=== PATIENT | male | born 1960 | race American Indian/Alaskan Native ===

== ENCOUNTER 2018-07-22 07:27 | Day surgery (SDC) | payer OTHER ==
[2018-07-22] MEDS ORDERED: NACL 0.9% 500 ML 500 ML IV SCH (08:00)
[2018-07-22 08:06] LABS: Basophils # (Auto) 0.1 K/mm3 (0.0-0.1); Eosinophils # (Auto) 0.2 K/mm3 (0.0-0.4); Eosinophils % (Auto) 3.9 % (0.0-4.3); Hematocrit 48.9 % (35.5-45.6); Lymphocytes # (Auto) 2.4 K/mm3 (1.2-5.4); Lymphocytes % (Auto) 38.3 % (13.4-35.0); Mean Corpuscular HGB Conc 35 % (32-34); Mean Corpuscular Volume 88 fl (84-94); Monocytes # (Auto) 0.8 K/mm3 (0.0-0.8); Monocytes % (Auto) 12.6 % (0.0-7.3); Platelet Count 156 K/mm3 (140-440); Red Blood Count 5.55 M/mm3 (3.65-5.03); Red Cell Distribution Width 13.9 % (13.2-15.2)
[2018-07-22 08:17] LABS: INR 0.9 (0.87-1.13)
[2018-07-22 08:22] LABS: BUN/Creatinine Ratio 13; Blood Urea Nitrogen 15 mg/dL (9-20); Hemolysis Index 57
[2018-07-22] MEDS ORDERED: HEPARIN 10,000 UNITS/10 ML ONE (09:13)
[2018-07-22] MEDS ORDERED: HEPARIN/NS 5000 UNIT/500ML(CATH LAB) 1,000 ML IR ONE (09:13)
[2018-07-22] MEDS ORDERED: CALAN ONE (09:13)
[2018-07-22] MEDS ORDERED: XYLOCAINE 2% INFILTRATI ONE (09:14)
[2018-07-22] MEDS ORDERED: NITROGLYCERIN SYRINGE 3 ML ONE (09:14)
[2018-07-22] MEDS ORDERED: VERSED ONE (09:20)
[2018-07-22] MEDS ORDERED: SUBLIMAZE ONE (09:21)
[2018-07-22] MEDS ORDERED: ECOTRIN PO ONE (09:30)
--- NOTE | 2018-07-22 10:01 | Short Stay Summary ---
Short Stay Documentation Date of service: 07/22/18 - History H&P: obtained from office - Allergies and Medications Current Medications: Allergies No Known Allergies Allergy (Verified 07/22/18 07:48) Home Medications Medication Instructions Recorded Confirmed Last Taken Type Aspirin [Aspir-Low] 81 mg PO DAILY 07/22/18 07/22/18 07/21/18 History AtorvaSTATin [Lipitor] 10 mg PO QHS 07/22/18 07/22/18 07/21/18 History Flaxseed Oil [Flaxseed] 1,000 mg PO DAILY 07/22/18 07/22/18 07/21/18 History Latanoprost 0.005% 1 drop OU DAILY 07/22/18 07/22/18 07/21/18 History Metoprolol Succinate [Toprol Xl] 50 mg PO DAILY 07/22/18 07/22/18 07/21/18 History Omeprazole 20 mg PO DAILY 07/22/18 07/22/18 07/21/18 History Active Medications Sodium Chloride (Nacl 0.9% 500 Ml) 500 mls @ 50 mls/hr IV DIRECT GEENA Stop: 07/22/18 17:59 Last Admin: 07/22/18 08:40 Dose: 50 mls/hr Documented by: - Brief post op/procedure progress note Date of procedure: 07/22/18 Pre-op diagnosis: chest pain Post-op diagnosis: same Procedure: see report, normal coronaries and normal lv function Anesthesia: local Estimated blood loss: none Pathology: none - Disposition Condition at discharge: Good Disposition: DC-01 TO HOME OR SELFCARE - Discharge Diagnoses (1) Chest pain Status: Chronic Qualifiers: Chest pain type: unspecified Qualified Code(s): R07.9 - Chest pain, unspecified (2) SVT (supraventricular tachycardia) Status: Chronic Short Stay Discharge Plan Activity: advance as tolerated Diet: low fat, low cholesterol Wound: keep clean and dry Follow up with: LINDA CORONADO MD [Primary Care Provider] - 7 Days
--- NOTE | 2018-07-22 11:08 | Cardiac Catherization Report ---
LEFT HEART CATHETERIZATION CLINICAL INFORMATION: For recurrent chest pain despite negative stress test. ORDERING PHYSICIAN: Lenny Psoada MD The patient was done with moderate sedation. Total sedation time was 23 minutes; started 9:32 a.m., finished at 9:55 a.m., 1 mg Versed and 50 mcg of fentanyl was given. Procedure was done via the right radial artery, sterile technique, local anesthesia, 6-Monegasque radial sheath inserted. PROCEDURE FINDINGS: Left system engaged with a JL3.5 catheter. Left main is large and patent, bifurcates to large LAD, patent from proximally and distally. Diagonal 1 and diagonal 2, small caliber vessel. Circumflex is a medium caliber vessel, patent, bifurcates into a jtgog-dv-uarcft caliber OM1 with moderate tortuosity, awofs-os-vraxir caliber OM2 with moderate tortuosity, OM3 sluzd-zo-llzath caliber vessel, patent. RCA engaged with JR4 is a medium caliber vessel, patent proximally and distally. PDA and PLV are sroqy-hg-ogwocv caliber vessel, it is patent. LV gram done in YEMENI and GARCIA view shows normal LV function, EF 55-60%, LVEDP 19 mmHg, LV is 138/19. Aortic is 130/82. No gradient across the aortic valve on pullback. 5-Monegasque catheters were taken over a guidewire, 6-Monegasque radial sheath was discontinued. Radial band applied. No hematoma, no bleeding. SUMMARY: Normal coronaries, right dominant system, normal LV function, noncardiac chest pain. Discussed this with the patient in detail. JOB# [id number] JAYNE/MCKAY
[2018-07-22 13:51] VITALS: BP 114/83
== END 2018-07-22 13:30 | disposition home or self-care (01) ==
LOC: CATHLABREC 07:27
PROVIDERS: ATTEND Internal Medicine
DX: R07.89 Other chest pain (principal); I10 Essential (primary) hypertension; E78.00 Pure hypercholesterolemia, unspecified; G47.30 Sleep apnea, unspecified; K21.9 Gastro-esophageal reflux disease without esophagitis; Z79.82 Long term (current) use of aspirin; Z79.899 Other long term (current) drug therapy; Z98.890 Other specified postprocedural states
CPT/HCPCS: 36415; 80048; 85025; 85610; 93005; 93010; 93458; 99156; 99157; C1894; J1644; J2250; J3010; J7040; Q9967